=== PATIENT | female | born 1935 | race Caucasian/White ===

== ENCOUNTER 2016-09-21 19:04 | Inpatient (IN) | payer MEDICARE ==
[2016-09-21] MEDS ORDERED: SODIUM CHLORIDE 0.9% 500 ML ONE (20:10)
[2016-09-21] MEDS ORDERED: PANTOPRAZOLE SODIUM 40 MG VIAL IV ONE (20:10)
[2016-09-21 20:32] LABS: ABSOLUTE NEUTROPHIL COUNT 3.5 K/mm3 (1.8-7.7); BASO % 0.2 % (0.2-1.0); EOS # 0.1 (0.0-0.5); IMM NEUT% 0.5 % (0-1); LYMPH # 2.1 (1.0-4.8); MEAN CELL VOLUME 112.3 fl (81.0-99.0); MEAN CORPUSCULAR HEMOGLOBIN 33.7 pg (27.0-31.0); MEAN CORPUSCULAR HGB CONC 30.1 g/dl (33.0-37.0); MEAN PLATELET VOLUME 9.4 fl (7.4-10.4); MONO # 0.6 (0.0-0.8); MONO % 8.8 % (4-12); NEUT % 56.5 % (43-75); PLATELET COUNT 194 K/mm3 (130-400); RED CELL DISTRIBUTION WIDTH 20.6 % (11.5-14.5)
[2016-09-21 20:47] LABS: HEMOGLOBIN 5.5 gm/l (12.0-16.0)
[2016-09-21 20:48] LABS: HEMATOCRIT 18.3 % (37.0-47.0)
[2016-09-21 20:53] LABS: ALB/GLOB RATIO 1.4 (>1.0); ALBUMIN 3.4 gm/dL (3.5-5.7); CALCIUM 8.4 mg/dL (8.6-10.3)
[2016-09-21] MEDS ORDERED: MENTHOL/CETYLPYRD 1 EACH LOZENGE PO PRN (20:58)
[2016-09-21] MEDS ORDERED: BISACODYL 10 MG SUP PR PRN (20:58)
[2016-09-21] MEDS ORDERED: SODIUM CHLORIDE 0.9% 100 ML IV PRN (20:58)
[2016-09-21] MEDS ORDERED: BLISTEX LIPSTICK 1 EACH TP PRN (20:58)
[2016-09-21] MEDS ORDERED: ACETAMINOPHEN 325 MG TABLET PO PRN (20:58)
[2016-09-21] MEDS ORDERED: MAGNESIUM HYDROXIDE 30 ML UDCUP PO PRN (20:58)
[2016-09-21] MEDS ORDERED: SODIUM CHLORIDE 0.9% 500 ML IV PRN (20:58)
[2016-09-21] MEDS ORDERED: BISACODYL 5 MG TABLET.EC PO PRN (20:58)
[2016-09-21 22:41] VITALS: BMI 31.7
[2016-09-21] MEDS ORDERED: FLU VACC 2016-17 (65 YR+)/PF 180 MCG/0.5 ML SYRINGE IM V ONE (22:41)
[2016-09-21] MEDS ORDERED: BLOOD Y PLUMSET W/CASSETTE ONE (22:53)
[2016-09-21] MEDS: DOCUSATE SODIUM 100 MG CAPSULE PO SCH (23:05)
[2016-09-21] MEDS ORDERED: INSULIN ASPART (DOSE) 100 UNITS/1 ML SUB-Q PRN (23:30)
[2016-09-21] MEDS ORDERED: DIAZEPAM 5 MG TABLET PO PRN (23:32)
[2016-09-21] MEDS: INSULIN GLARGINE (DOSE) 100 UNITS/ML UNIT SUB-Q SCH (23:46)
[2016-09-21] MEDS: ATENOLOL 50 MG TABLET PO SCH (23:55)
[2016-09-22] MEDS: PANTOPRAZOLE SODIUM 40 MG VIAL IV SCH ×2 (01:49→21:46)
[2016-09-22] MEDS ORDERED: FUROSEMIDE 20 MG/2 ML VIAL IV ONE (04:00)
[2016-09-22] MEDS ORDERED: BLOOD Y PLUMSET W/CASSETTE ONE (04:03)
--- NOTE | 2016-09-22 07:08 | HP ---
Imelda Garg [id number] DATE OF ADMISSION: September 21, 2016 CHIEF COMPLAINT: Critical lab value. HISTORY OF PRESENT ILLNESS: The patient is a 81-year-old female who was seen by her primary care providers office today with complaints of dizziness and some bright red blood per rectum following bowel movements over the past week. The bleeding started about a week ago and the patient has had some dizziness. The patient had laboratory studies done and went home. Her values showed a critical hemoglobin of 5.7 and she was directed to the emergency department for further evaluation. Reevaluation in the emergency department showed a hemoglobin value of 5.5. The patient reports that she has been having some heartburn symptoms as well as some sticking of pills in her throat when she swallows at times in the last couple of months. She normally has dark bowel movements, but is on chronic iron therapy. She has been feeling fatigued and having some dyspnea on exertion for the last two weeks. REVIEW OF SYSTEMS: Negative for any fevers or chills. She has had no recent upper respiratory symptoms. She denies any worsening of her chronic cough. She denies any chest pain or palpitations. No orthopnea. As I mentioned, she has had some heartburn, but denies any nausea or vomiting. No focal abdominal pain. She has had some bright red blood per rectum as reported by her daughter. She has had no new arthralgia's. No headaches, fainting, blackouts, or seizures. No falls. She denies any urinary complaints, but does have some occasional incontinence. Review of systems is otherwise negative. PAST MEDICAL HISTORY: Significant for a remote history of breast cancer. 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 She has a history of coronary artery disease, status post bypass in 2009 without angina. She has had a history of dyslipidemia on statin therapy and chronic essential hypertension on multiple medications. She has had a history of hemorrhoids as well as arteriovenous malformations of the colon. She has had a remote history of stroke with a posterior limb internal capsule stroke in 2002 resulting in some left fascial droop and ataxia. She has made a complete recovery. She has some chronic kidney disease stage III due to her diabetes. She has had some chronic mixed urinary incontinence. PAST SURGICAL HISTORY: Significant for a 4-vessel coronary artery bypass graft in [address] [facility]. She had an angiogram that month as well. She had a screening colonoscopy in 2009 showing some arteriovenous malformations. She has had multiple bladder surgeries for her incontinent symptoms. She has had a remote history of bilateral mastectomies for her breast cancer as well as prior low back surgery. Has never had an upper endoscopy. ALLERGIES: INTOLERANCE IS DOCUMENTED TO AMMON INHIBITORS WHICH CAUSED A COUGH AND VICODIN WHICH CAUSED NAUSEA. SHE HAS HAD A RASH OR TRUE ALLERGY ASSOCIATED WITH SULFA MEDICATIONS. CURRENT MEDICATIONS: Obtained from [employer] from her primary care providers records. She was not able to confirm her medications from her own list which she did not bring. Her usual pharmacy is [facility] in [place]. Dr. Calderon's list states she takes: 1. Maxide 50/75 mg one daily. 2. Pulmicort inhaler one puff twice daily. 3. Cozaar 50 mg by mouth twice daily. 4. Lantus insulin 35 units subcutaneously twice daily although, the patient often will take it only once daily especially if her morning sugars are normal. 5. She takes gabapentin 300 mg at bedtime. 6. Colchicine 0.6 mg twice daily as needed for gout. 7. Lipitor 10 mg at bedtime. 8. Atenolol 100 mg at bedtime. 9. Aspirin 81 mg daily. FAMILY HISTORY: Significant for a brother with diabetes and high blood pressure. Her father had an myocardial infarction at a very early age. SOCIAL HISTORY: She is . She lives with her . They are still fairly independent. They have four grown children. She rarely drinks alcohol. There is no history of tobacco use. Her primary care provider is Dr. Nirav Calderon. Her slurry man was Dr. Da Lei, I do not think she sees the slurry man regularly. PHYSICAL EXAMINATION: VITALS: Temperature 98.2, pulse 67, blood pressure 151/59, respirations 20, oxygen saturation is 98% on room air. Body mass index 31.7, weight is 83.8 kg. GENERAL: This is a slightly obese elderly female in no acute distress. HEENT: Unremarkable except for moist pale oral mucosa. NECK: Supple without lymphadenopathy or thyromegaly. LUNGS: Fairly clear to auscultation bilaterally. CARDIOVASCULAR: Reveals a regular rate and rhythm without a murmur. ABDOMEN: Obese, soft, nontender, nondistended with positive bowel sounds. NEUROLOGIC: Nonfocal. She is alert and oriented x3. LABORATORY STUDIES: Hemoccult testing of the stool was positive. CBC with a white count of 6.2, hemoglobin of 5.5. Mean corpuscular volume is 112.3, platelet count is 194,000. Sodium is 132, potassium elevated at 5.5, carbon dioxide 22, BUN 31, creatinine 1.6, glucose 252. Liver function tests are normal. ASSESSMENT: The patient has acute on chronic blood loss anemia. The indices show a large mean corpuscular volume. I am going to go ahead and get folic acid and B12 levels because of that. I suspect her blood loss is due to colonic bleeding, probably from arteriovenous malformations. She has some associated fatigue and malaise. She has had some swallowing dysfunction and heartburn symptoms recently. She has adult onset diabetes complicated by nephropathy with chronic stage III kidney disease. She has a history of coronary artery disease involving the [place] vessels which is stable without angina. She has some mild hyperkalemia. She is admitted to the med/surg unit under intermediate care because of her cardiac history and extreme anemia. I have crossed matched 4 units and plan on transfusing 3 units overnight. I am going to place her on a clear liquid diet and review her history with Dr. Lopez. May consider pursuing upper and lower endoscopy during this stay. Anticipate she will stay about 48 hours to ensure that she is hemodynamically stable. She will be treated with Protonix 40 mg daily. For her diabetes I am going to cover her with a moderate sliding scale and a reduced dose of Lantus 20 units daily because she will be on clear liquids. For her blood pressure and coronary artery disease I am going to continue the beta varsha. I am going to hold on the aspirin therapy due to concerns for gastrointestinal bleeding. Venous thromboembolism is moderate and mechanical measures will be used for prophylaxis due to concerns about active bleeding risks. Further treatment and recommendations will depend on her hospital course. Given her hyperkalemia I am going to hold her ARB therapy. I am also likely going to stop her Maxide therapy and substitute hydrochlorothiazide alone later during her stay. JOB: [id number] CC: Dr. Nirav Calderon
[2016-09-22] MEDS ORDERED: HYDROCHLOROTHIAZIDE 50 MG TABLET PO SCH (09:00)
[2016-09-22] MEDS: DOCUSATE SODIUM 100 MG CAPSULE PO SCH ×3 (09:33→21:45)
[2016-09-22] MEDS: LOSARTAN POTASSIUM 50 MG TABLET PO SCH ×2 (09:33→21:45)
[2016-09-22 09:59] LABS: HEMOGLOBIN 9.3 gm/l (12.0-16.0); MEAN CORPUSCULAR HEMOGLOBIN 31.4 pg (27.0-31.0); MEAN CORPUSCULAR HGB CONC 32.1 g/dl (33.0-37.0); RED CELL DISTRIBUTION WIDTH 20.7 % (11.5-14.5)
[2016-09-22 10:26] LABS: CALCIUM 8.2 mg/dL (8.6-10.3)
[2016-09-22 15:33] LABS: HEMATOCRIT 30.2 % (37.0-47.0); HEMOGLOBIN 9.7 gm/l (12.0-16.0)
--- NOTE | 2016-09-22 15:38 | PDOC43 ---
- Subjective Chief Complaint: critical lab Subjective: Denies Shortness of Breath, Denies Chest Pain - Objective Vital Signs Temperature 97.6 F 09/22/16 08:00 Pulse Rate 58 09/22/16 08:00 Respiratory Rate 14 09/22/16 08:00 Blood Pressure 145/57 09/22/16 08:00 O2 Saturation by Pulse Oximetry 96 09/22/16 08:00 Oxygen Delivery Method Room Air Oxygen Flow Rate 0 Intake and Output 09/21/16 09/22/16 09/23/16 06:59 06:59 06:59 Intake Total 1520 120 Output Total 1500 550 Balance 20 -430 General: Alert, Oriented x3, Cooperative, No Acute Distress HEENT: Mucous membr. moist/pink Lungs: Clear to Auscultation Bilaterally Cardiovascular: Regular Rate and Rhythm Abdomen: Soft, Normal Bowel Sounds, Non-Distended, No Tenderness Extremities: No Edema Skin: Warm, Dry, Intact Laboratory 09/22/16 09:54 09/22/16 09:54 09/22/16 09/21/16 09/21/16 09:54 23:14 20:15 RBC 2.96 L 1.63 L MCV 112.3 H MCH 31.4 H 33.7 H MCHC 32.1 L 30.1 L RDW 20.7 H 20.6 H BUN 27 H 31 H Estimated GFR 31 L 31 L POC Capillary Glucose 222 H Calcium 8.2 L 8.4 L Total Protein 5.9 L Albumin 3.4 L Crossmatch See Detail Current Medications: Current meds reviewed in EMR. - Problems: Assessment/Plan (1) Anemia Qualifiers: Anemia type: other cause Other causes of anemia: acute posthemorrhagic Qualifier Code: (D62) Acute posthemorrhagic anemia Status: Acute Assessment/Plan: acute on chronic blood loss anemia with H/O iron def and CKD contributing, MCV high, S/P 3 units of PRBCs with HGB increased from 5.5 to 9.3-follow closely, check B-12 and Folate (2) Rectal bleeding Status: Acute Assessment/Plan: wiath acute blood loss as above, some ongoing maroon stools, suspect lower GI bleeding source given H/O colonic AVMs-Dr Lopez to perform upper and lower endoscopy in am-bowel prep (3) GERD (gastroesophageal reflux disease) Qualifiers: Esophagitis presence: esophagitis presence not specified Qualifier Code : (K21.9) Gastro-esophageal reflux disease without esophagitis Status: Acute Assessment/Plan: by history with some pill dysphagia-EGD in am (4) Diabetes Qualifiers: Diabetes mellitus type: type 2 Diabetes mellitus complication status: with kidney complications Diabetes mellitus complication detail: with chronic kidney disease Diabetes mellitus extermination inspector insulin use: with jail use Chronic kidney disease stage: stage 3 (moderate) Qualifier Code : (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 transplanted heart: [place] heart Associated angina: without angina Qualifier Code: (I25.10) Atherosclerotic heart disease of [place] coronary artery without angina pectoris Status: Chronic Assessment/Plan: S/P 4 vessel CABG in 2009 without angina, followed by [place]-cont Atenolol and aspirin (6) Hypercholesteremia Status: Acute Assessment/Plan: Cont. Statin therapy (7) Hyperkalemia Status: Acute Assessment/Plan: resolved but consider switching from Maxzide to HCTZ at discharge VTE Prophylaxis: [facility] measures Disposition: Possibly home after scopes in am if stable
[2016-09-22] MEDS: SODIUM,POTASSIUM,&MAG SULFATES 354 ML (2 DOSE KIT) PO SCH (17:16)
[2016-09-22] MEDS ORDERED: PUMP TUBING ONE (20:16)
[2016-09-22] MEDS: LACTATED RINGERS 1,000 ML IV SCH (20:21)
[2016-09-22] MEDS: ATENOLOL 50 MG TABLET PO SCH (21:46)
[2016-09-22] MEDS: INSULIN GLARGINE (DOSE) 100 UNITS/ML UNIT SUB-Q SCH (23:07)
[2016-09-23] MEDS: SODIUM,POTASSIUM,&MAG SULFATES 354 ML (2 DOSE KIT) PO SCH (05:13)
[2016-09-23 05:38] LABS: FOLIC ACID 14.9 ng/mL (>5.9)
[2016-09-23 07:59] LABS: ABSOLUTE NEUTROPHIL COUNT 3.5 K/mm3 (1.8-7.7); BASO % 0.4 % (0.2-1.0); EOS # 0.2 (0.0-0.5); EOS % 2.7 % (0.9-2.9); HEMATOCRIT 31.4 % (37.0-47.0); IMM NEUT% 0.4 % (0-1); LYMPH # 1.4 (1.0-4.8); LYMPH % 24.3 % (15-45); MEAN CORPUSCULAR HEMOGLOBIN 32.2 pg (27.0-31.0); MEAN CORPUSCULAR HGB CONC 31.8 g/dl (33.0-37.0); MEAN PLATELET VOLUME 9.3 fl (7.4-10.4); MONO # 0.6 (0.0-0.8); MONO % 10.7 % (4-12); NEUT % 61.5 % (43-75); PLATELET COUNT 147 K/mm3 (130-400); RED CELL DISTRIBUTION WIDTH 21.7 % (11.5-14.5)
[2016-09-23] MEDS: LOSARTAN POTASSIUM 50 MG TABLET PO SCH (08:55)
[2016-09-23] MEDS ORDERED: HYDROCHLOROTHIAZIDE 50 MG TABLET PO SCH (09:00)
[2016-09-23] MEDS ORDERED: IV START KIT ONE (09:08)
[2016-09-23] MEDS ORDERED: SODIUM CHLORIDE 0.9% FLUSH 10 ML ONE (09:08)
[2016-09-23] MEDS ORDERED: PROPOFOL 20 ML IV ONE (09:11)
[2016-09-23] MEDS ORDERED: LIDOCAINE Viscous 2% 15 ML UDCUP ONE (09:12)
[2016-09-23] MEDS ORDERED: LIDOCAINE 1% (PRES FREE) 5 ML VIAL ONE (09:15)
[2016-09-23] MEDS: DOCUSATE SODIUM 100 MG CAPSULE PO SCH (09:18)
[2016-09-23 09:20] LABS: ANISOCYTOSIS 1+; PLATELET ESTIMATE NORMAL (NORMAL)
[2016-09-23] MEDS: LACTATED RINGERS 1,000 ML IV SCH (09:20)
[2016-09-23 12:19] VITALS: BP 132/40
[2016-09-23 14:46] LABS: HELICOBACTER PYLORII DETECTION NEGATIVE (NEGATIVE)
[2016-09-23] MEDS ORDERED: ATORVASTATIN CALCIUM 10 MG TABLET PO SCH (21:00)
--- NOTE | 2016-09-24 07:41 | DS ---
Imelda Garg [id number] DATE OF ADMISSION: September 21, 2016 DATE OF DISCHARGE: September 23, 2016 DISCHARGE DIAGNOSES: 1. Weakness with acute on chronic blood loss anemia. 2. Fatigue. 3. Hematochezia. 4. Adult onset diabetes with chronic nephropathy. 5. Chronic stage III kidney disease. 6. History of coronary artery disease involving the [place] vessel stable without angina. 7. Hyperkalemia. PROCEDURES PERFORMED DURING THE HOSPITALIZATION: Included a gastroenterology consultation with Dr. Rui Lopez and performance of an upper and lower endoscopy on September 23, 2016. Patient also received a transfusion of 3 units of packed red blood cells overnight on September 21 and in the director athletic hours of September 22. TO SUMMARIZE THE ADMISSION AND HOSPITAL COURSE: The patient is a 81-year-old female with history of prior gastrointestinal bleeding associated with colonic arteriovenous malformations back in 2009 who presented on admission with weakness and critical lab values showing hemoglobin down to 5.7. She had given the history of some hematochezia occurring a week or two prior to admission. She was admitted by the hospitalist to the med/surg unit and was transfused 3 units of packed red blood cells. Post transfusion her hemoglobin stabilized at around 10 with a hematocrit around 31. Her mean corpuscular volume was actually high at 112, but folate and B12 testing were normal. On admission she was noted to have mild hyperkalemia with a potassium level of 5.5. Her admission creatinine was at baseline at 1.6. She had a few loose stools during her stay which appeared maroon colored, but her hemoglobin remained stable. She was taken off of her Maxide and hydrochlorothiazide was substituted because of the elevated potassium which improved with saline hydration and the transfusion. She was felt to be medically stable for discharge on September 23, 2016. PHYSICAL EXAMINATION: VITALS: At the time of discharge showed a temperature of 98.1, pulse 50, blood pressure 132/40, respirations 17, oxygen saturation is 94% on room air. Body mass index is 30.4 with a weight of 80.4 kg. GENERAL: This is a slightly obese elderly female in no acute distress. HEENT: Unremarkable. LUNGS: Clear to auscultation bilaterally. CARDIOVASCULAR: Reveals a regular rate and rhythm without a murmur. ABDOMEN: Soft, nontender, nondistended with positive bowel sounds. EXTREMITIES: Show no peripheral edema. ALLERGIES: DOCUMENTED TO SULFA MEDICATIONS, AMMON INHIBITORS, AND HYDROCODONE. DISCHARGE MEDICATIONS: Include: 1. A new prescription for iron sulfate 325 mg twice daily. 2. Hydrochlorothiazide 50 mg once daily. 3. She will stop her Maxide therapy due to elevated potassium. 4. She is going to continue with aspirin 81 mg daily. 5. Atenolol 100 mg at bedtime. 6. Lipitor 10 mg at bedtime. 7. Colchicine 0.6 mg twice daily as needed for gout. 8. Neurontin 300 mg at bedtime. 9. Lantus insulin 35 units at bedtime sometimes twice daily if needed for hyperglycemia. 10. Cozaar 50 mg twice daily. 11. Pulmicort Flexhaler one puff twice daily. FOLLOW UP APPOINTMENT: Has been scheduled with Dr. Nirav Calderon on October 08 at the [facility] at 9:10 a.m. CODE STATUS: Do not resuscitate, do not intubate. JOB: [id number] CC: Dr. Nirav Calderon
--- NOTE | 2016-09-27 12:53 | SURGPATH ---
[facility] [employer] [address] [place] [id number] Patient Name: HIEN ROBERT MR#: [id number] : 1935 Gender: F Specimen #: [id number] Collected: 09/23/2016 Received: 09/24/2016 Reported: 09/27/2016 Submitting Phys: YESICA KILGORE Copy To Phys: [facility] Myke TEJEDA Addendum Present Clinical History / Pre-Operative Diagnosis: BLOOD LOSS ANEMIA; GI BLEED; RULE OUT GIARDIA, CELIAC SPRUE AND GASTRITIS Specimen Source / Surgical Procedure Performed: #1-DUODENAL BIOPSY; #2-ANTRAL BIOPSY Interpretation: 1. DUODENUM, BIOPSY: - MILD INTRAEPITHELIAL LYMPHOCYTOSIS (SEE COMMENT) 2. GASTRIC ANTRUM, BIOPSY: - MILD CHRONIC GASTRITIS - HELICOBACTER IMMUNOSTAIN PENDING Comment: Increased intraepithelial lymphocytes in the absence of villous atrophy can be seen associated with infections, food allergies, drug reactions and immune system abnormalities. In this case the intraepithelial lymphocytosis is likely related to the gastritis. Clinical pathologic correlation is suggested. Electronically Signed Out Neto Liu M.D. Addendum Date Reported: 09/29/2016 Signed Out Addendum Comment A helicobacter immunostain is performed on the gastric biopsy. Helicobacter organisms are not seen in the patient's tissue. (Analyte-specific reagents (ASR) are used in many laboratory tests necessary for standard medical care and generally do not require FDA approval. This test was developed and its performance characteristics determined by [facility]. It has not been cleared or approved by the U.S. Food and Drug Administration. [facility] is certified under the Clinical Laboratory Improvement Amendments of 1988 as qualified to perform high complexity clinical laboratory testing. All controls stain as expected.) lk/09/29/2016 Electronically Signed Out By Neto Liu M.D. Gross Description: #1 The specimen is received in a formalin filled container labeled with the patient's name and "duodenal biopsy". Three goyal biopsies are each 0.3 cm. Totally embedded in cassette #1. #2 The specimen is received in a formalin filled container labeled with the patient's name and "antral biopsy". A single goyal biopsy is 0.5 cm. Totally embedded in cassette #2. Tami Ortiz Microscopic Description: 1. Levels reveal fragments of duodenal mucosa with an intact villous architecture. In some areas there is a mild increase in intraepithelial lymphocytes. Ulceration, acute inflammation, Giardia organisms, dysplasia and malignancy are not seen. 2. Levels reveal gastric antral mucosa with mildly increased chronic inflammation throughout the lamina propria. Ulceration, dysplasia and malignancy are not seen. A Helicobacter immunostain will be performed with results issued in an addendum report. 1: [id number] 2: 81371, 81500 K29.30
== END 2016-09-23 14:04 | disposition home or self-care (01) | DRG 812 ==
LOC: ED 19:04 → MS 20:14
PROVIDERS: ADMIT Family Medicine; ATTEND Family Medicine
PROC: 30233N1 Transfusion of Nonautologous Red Blood Cells into Peripheral Vein, Percutaneous Approach (ICD-10-PCS; principal; 2016-09-23)
PROC: 0DB68ZX Excision of Stomach, Via Natural or Artificial Opening Endoscopic, Diagnostic (ICD-10-PCS; 2016-09-23)
DX: D50.0 Iron deficiency anemia secondary to blood loss (chronic) (principal); K29.70 Gastritis, unspecified, without bleeding; Z95.1 Presence of aortocoronary bypass graft; E87.5 Hyperkalemia; E11.21 Type 2 diabetes mellitus with diabetic nephropathy; I25.10 Atherosclerotic heart disease of native coronary artery without angina pectoris